=== PATIENT | male | born 1960 | race Hispanic/Latino ===

== ENCOUNTER 2024-03-20 19:49 | Emergency (ER) | payer BC ==
[~2024-03-20] VITALS: Ht 172.7 cm; Wt 131.5 kg
[~2024-03-20 19:49] MED LIST: ASPIR 8181 MG PO; DAILY VITAMIN1 EAC3; FOSINOPRIL SODI20 MG; GLIPIZIDE10 MG PO; JANUMET 50-1,01 EACH PO; VAYACOG CAPSUL1 EACH PO; VITAMIN B12 500 MCG; WELCHOL3.75 GM PO; lisinopril PO
[2024-03-20 19:53] VITALS: TEMP 98.8
[2024-03-20] MEDS ORDERED: SODIUM CHLORIDE FLUSH 10 ML SYR INJ PRN (20:00)
[2024-03-20 20:29] LABS: BASOPHILS % 0.3 % (0.0-1.0); EOSINOPHILS % 0.2 % (0.0-6.0); HEMATOCRIT 44.2 % (38.2-49.6); HEMOGLOBIN 14.8 g/dL (14.0-18.0); LYMPHOCYTES # (AUTO) 1.5 (1.0-3.2); LYMPHOCYTES % 11.2 % (18.0-39.1); MEAN CORPUSCULAR HEMOGLOBIN 29.8 pg (28-32); MEAN CORPUSCULAR HGB CONC 33.5 g/dL (31-35); MEAN CORPUSCULAR VOLUME 89.1 fL (81-99); MONOCYTES # (AUTO) 0.8 (0.2-0.8); MONOCYTES % 6.1 % (4.4-11.3); NEUTROPHILS # (AUTO) 11.1 (2.1-6.9); NEUTROPHILS % 81.6 % (38.7-80.0); PLATELET COUNT 204 x10e3/uL (140-360); RED BLOOD COUNT 4.96 x10e6/uL (4.3-5.7); RED CELL DISTRIBUTION WIDTH 13.5 % (11.7-14.4); WHITE BLOOD COUNT 13.54 x10e3/uL (4.8-10.8)
[2024-03-20 20:47] LABS: ALBUMIN 4.1 g/dL (3.5-5.0); ALBUMIN/GLOBULIN RATIO 1.1 (0.8-2.0); ANION GAP 17.2 mmol/L (8-16); BILIRUBIN,TOTAL 0.4 mg/dL (0.2-1.2); CALCIUM 9.4 mg/dL (8.4-10.2); CREATININE, SERUM 1.11 mg/dL (0.72-1.25); POTASSIUM 4.2 mmol/L (3.5-5.1); TOTAL PROTEIN 7.7 g/dL (6.5-8.1)
[2024-03-20] MEDS ORDERED: IOPAMIDOL 370 MG/ML 100 ML INFUS..BTL INJ ONE (21:15)
[2024-03-20 23:00] VITALS: PULSE 87; RESP 22; O2SAT 96
[2024-03-20] MEDS: ONDANSETRON HCL INJ 2MG/ML 2ML 2 MG/ML VIAL IV STA (23:07)
[2024-03-20] MEDS: Morphine 4mg INJECTION 4 MG/ML INJ IV ONE (23:07)
[2024-03-20] MEDS ORDERED: ORPHENADRINE C100 MG PO (23:09)
[2024-03-20] MEDS ORDERED: ULTRAM 50MG50 MG PO (23:09)
== END 2024-03-20 23:22 | disposition home or self-care (01) ==
LOC: ER 19:55
DX: S29.012A Strain of muscle and tendon of back wall of thorax, initial encounter (principal); S50.812A Abrasion of left forearm, initial encounter; S50.12XA Contusion of left forearm, initial encounter; W11.XXXA Fall on and from ladder, initial encounter; Y93.H2 Activity, gardening and landscaping; Y92.89 Other specified places as the place of occurrence of the external cause; I10 Essential (primary) hypertension; E11.65 Type 2 diabetes mellitus with hyperglycemia
CPT/HCPCS: 36415; 70450; 71260; 72125; 73080; 73090; 73110; 73522; 74177; 80053; 84484; 85025; 93005; 94760; 99284; Q9967